=== PATIENT | female | born 1990 | race African-American/Black ===

== ENCOUNTER 2016-12-23 12:41 | Emergency (ER) | payer OTHER ==
[~2016-12-23] VITALS: Ht 167.6 cm; Wt 99.3 kg
[2016-12-23] MEDS ORDERED: VENTOLIN HFA 1818 GM INH (13:28)
[2016-12-23] MEDS ORDERED: ZOLOFT25 MG PO (13:28)
[2016-12-23] MEDS ORDERED: MOBIC15 MG PO (14:32)
[2016-12-23 14:51] VITALS: BP 103/52
== END 2016-12-23 14:51 | disposition home or self-care (01) ==
LOC: ER 12:41
DX: R51 Headache (principal); M79.605 Pain in left leg; V49.50XA Passenger injured in collision with unspecified motor vehicles in traffic accident, initial encounter; Y93.I9 Activity, other involving external motion; Y92.488 Other paved roadways as the place of occurrence of the external cause; Y99.9 Unspecified external cause status